=== PATIENT | female | born 1960 | race Hispanic/Latino ===

== ENCOUNTER 2018-01-21 08:05 | Day surgery (SDC) | payer OTHER ==
[~2018-01-21 08:05] MED LIST: CEFAZOLIN/SWI 2gm 2 GM/20 ML SYR IV SCH
[2018-01-21] MEDS ORDERED: Ringers Lactate 1,000 ML IV ONE (08:43)
[2018-01-21] MEDS ORDERED: BUPIVACA 0.25%/EPI 0.0005%/PF 30 ML VIAL ONE (09:39)
[2018-01-21] MEDS ORDERED: MIDAZOLAM HCL 2 MG/2 ML INJ ONE (10:13)
[2018-01-21] MEDS ORDERED: PROPOFOL 200 MG/20 ML VIAL IV ONE (10:13)
[2018-01-21] MEDS ORDERED: LIDOCAINE 1% MPF 5 ML VIAL ONE (10:14)
[2018-01-21] MEDS ORDERED: FENTANYL CITR 100 MCG/2 ML ONE (10:14)
--- NOTE | 2018-01-21 11:01 | P.OP ---
Respooler: jamarcus Preoperative diagnosis: RIGHT Axillary Lipoma Postoperative diagnosis: RIGHT Axillary Lipoma Primary procedure: Excision of RIGHT Axillary Lipoma Secondary procedure: Scar Revision Anesthesia: GETA + Local Estimated blood loss: <10cc Specimen: Lipoma, Skin, axillary tissue Findings: Significant scar tissue to RIGHT axilla Complications: None Transferred to: Recovery Room Condition: Good
[2018-01-21] MEDS ORDERED: KETOROLAC 30 MG/ML INJ ONE (11:06)
[2018-01-21] MEDS ORDERED: ONDANSETRON 4 MG/2 ML VIAL ONE (11:06)
[2018-01-21] MEDS ORDERED: CODEINE 30MG/APAP 300MG TAB ONE (12:15)
[2018-01-21] MEDS ORDERED: ACETAMINOPHEN 500 MG TAB PO ONE (12:20)
[2018-01-21] MEDS ORDERED: ACETAMINOPHEN 500 MG TAB ONE (12:35)
--- NOTE | 2018-01-22 01:54 | OP ---
Date of Procedure: 01/21/2018 Surgeon: Gregory Pyle MD, Preoperative Diagnosis: Right axillary lipoma. Postoperative Diagnosis: Right axillary lipoma. Procedure Performed: 1.Excision of right axillary lipoma. 2.Scar revision. Anesthesia: General endotracheal plus local with 0.25% Marcaine with epinephrine. Estimated Blood Loss: Less than 10 cc. Specimen: Lipoma, skin, and axillary tissue. Findings: Significant scar tissue at the right axilla causing wound contraction and a small lipomato us tissue to the right axilla, not extending to the axillary region more to the right chest wall than axilla. Complications: None. Disposition: Transferred to the recovery room in good condition. Procedure In Detail: After informed consent was obtained, the patient was brought to the operating r oom, prepped and draped in the usual sterile fashion. After adequate anesthesia was achieved, I anes thetized the previous surgical scar the patient had in the right axilla/chest wall region for approxi mately 7-8 cm. I then cut the ellipse of skin out over this overlying scar and dissected down using electrocautery. Using sharp dissection and electrocautery, I dissected down to create skin flaps and remove some lipomatous tissue in the right chest wall/axillary region which appeared to be enlarged consistent with a possible lipoma and sent this off for pathologic examination. I then undermined an d created skin flap circumferentially to revise the previous scar. After appropriately dissecting th e skin flaps, I achieved hemostasis with electrocautery circumferentially around. I removed some tis tyshawn from the scar area and sent it off for pathologic examination. This was at the border of the axi lla as well. After this was completed, I then cleansed the area once again with irrigation and achie seferino hemostasis with electrocautery. After this was completed, I reapproximated the deep tissues with 3-0 Vicryl in an interrupted fashion and closed the skin with a 4-0 Monocryl in running fashion. De rmabond placed over top. The patient tolerated the procedure well without evidence of complication, transferred to the PACU in good condition. All counts were correct at the end of the case. ANA/MATIAS Voice ID: [id number] Report ID: [id number]
== END 2018-01-21 12:57 | disposition home or self-care (01) ==
LOC: OR 08:05
PROVIDERS: ATTEND Surgery
PROC: 0HBBXZZ Excision of Right Upper Arm Skin, External Approach (ICD-10-PCS; 2018-01-21)
PROC: 0JBD0ZZ Excision of Right Upper Arm Subcutaneous Tissue and Fascia, Open Approach (ICD-10-PCS; principal; 2018-01-21 09:30)
DX: D17.20 Benign lipomatous neoplasm of skin and subcutaneous tissue of unspecified limb (principal); E78.00 Pure hypercholesterolemia, unspecified; I10 Essential (primary) hypertension; Z79.82 Long term (current) use of aspirin; Z91.040 Latex allergy status; Z80.41 Family history of malignant neoplasm of ovary; Z80.49 Family history of malignant neoplasm of other genital organs
CPT/HCPCS: 88302; 88304; 88305; J0690; J2250; J2405; J3010

== ENCOUNTER → 2018-03-15 | Day surgery (SDC) | payer OTHER ==
--- NOTE | 2018-03-15 10:52 | RAD REPORT ---
EXAM DESCRIPTION: Ultrasound-guided vacuum assisted right breast core biopsy CLINICAL HISTORY: Breast mass, enlarging intramammary lymph node. COMPARISON: Recent breast imaging studies. FINDINGS: Informed consent was obtained and time-out was performed. The patient's right breast was prepped and draped in the usual sterile fashion. 1% lidocaine was used for local anesthetic purposes. Utilizing aseptic technique and ultrasound guidance, vacuum assisted core biopsy device was used to o btain 2 core specimen through the mass of interest at approximately right breast 8-9 o'clock. A post biopsy clip was then placed. All collected material was sent for cytology. Patient tolerated procedure well. IMPRESSION: Successful ultrasound guided vacuum assisted right breast mass biopsy.
== END ==
LOC: DS 09:14
PROVIDERS: ATTEND Family Medicine
PROC: 0HBT3ZX Excision of Right Breast, Percutaneous Approach, Diagnostic (ICD-10-PCS; principal; 2018-03-15)
DX: N63.10 Unspecified lump in the right breast, unspecified quadrant (principal); N64.9 Disorder of breast, unspecified
CPT/HCPCS: 19083; 88305

== ENCOUNTER 2019-04-25 07:26 | Day surgery (SDC) | payer OTHER ==
[2019-04-25] MEDS ORDERED: BUPIVACA 0.5%/EPI 0.0005%/PF 10 ML VIAL ONE (08:10)
[2019-04-25] MEDS ORDERED: CEFAZOLIN/SWI 2gm 2 GM/20 ML SYR ONE (08:17)
[2019-04-25] MEDS ORDERED: Ringers Lactate 1,000 ML IV ONE (08:17)
[2019-04-25] MEDS ORDERED: MIDAZOLAM HCL 2 MG/2 ML INJ ONE (08:21)
[2019-04-25] MEDS ORDERED: BUPIVACA 0.25%/EPI 0.0005% MDV 50 ML VIAL ONE (08:21)
[2019-04-25] MEDS ORDERED: PROPOFOL 200 MG/20 ML VIAL IV ONE ×2 (08:21→09:51)
[2019-04-25] MEDS ORDERED: FENTANYL CITR 100 MCG/2 ML ONE ×2 (08:21→10:01)
[2019-04-25] MEDS ORDERED: LIDOCAINE 1% MPF 5 ML VIAL ONE (08:21)
[2019-04-25] MEDS ORDERED: KETOROLAC 30 MG/ML INJ ONE (09:21)
[2019-04-25] MEDS ORDERED: ONDANSETRON 4 MG/2 ML VIAL ONE (09:21)
--- NOTE | 2019-04-25 10:06 | P.OP ---
Preoperative diagnosis: Recurrent RIGHT Chest Wall Mass Postoperative diagnosis: Recurrent RIGHT Chest Wall Mass Primary procedure: Wide local excision of Recurrent RIGHT Chest Wall Mass Anesthesia: GETA + Local Estimated blood loss: <5cc Specimen: Frozen Section + Permanent chest wall mass with surrounding tissue Findings: Firm Fixed mass to chest wall, adherant to chest wall Complications: None Drain(s): IMANI drain Transferred to: Recovery Room Condition: Good
[2019-04-25] MEDS ORDERED: HYDROCODONE/APAP 7.5/325 MG TAB ONE (11:28)
[2019-04-25] MEDS ORDERED: ACETAMINOPHEN 325 MG TABLET ONE (11:46)
[2019-04-25] MEDS ORDERED: ACETAMINOPHEN 325 MG TABLET PO ONE (11:50)
--- NOTE | 2019-04-25 14:49 | OP ---
Date of Procedure: 04/25/2019 Surgeon: Gregory Pyle MD, Preoperative Diagnosis: Recurrent right chest wall mass. Postoperative Diagnosis: Recurrent right chest wall mass. Procedure Performed: Wide local excision of recurrent chest wall mass. Anesthesia: General endotracheal plus local 0.5% Marcaine with epinephrine. Estimated Blood Loss: Less than 5 cc. Specimen: Right chest wall mass 7 cm x 4 cm approximately sent for frozen section. I then took matthew tional deep margins and surrounding tissue which appeared to be soft, fibrofatty tissue. Frozen sect ion performed which I personally examined as well appeared to be consistent with simple fibrosis, alt christ we will find out on permanent section as this is going to be sent for additional studies by Barbara levy. I returned to the operating room after the frozen section to complete the case. Complications: None. Drains: A IMANI drain which is a 10-Turkish round IMANI drain. The patient transferred to recovery room in good condition. Procedure In Detail: After informed consent was obtained, the patient was brought to the operating r oom, prepped and draped in the usual sterile fashion. After adequate anesthesia achieved, I incised through previous incision on the right chest wall down to subcutaneous tissues medially, encounter wa s firm fibrous tissue just adjacent to the dermis. I dissected circumferentially around, creating th in flaps as this tissue was quite firm and adherent. I dissected down to the chest wall and took a s egment of the firm fibrous tissue and sent that off for frozen section. I then personally reviewed t he frozen section and visualize the tissue with Dr. Sprague. We found that there was no evidence for malignancy, although the tissue was firm and rock hard during the surgery. I then returned to the op erating room. I took an additional deep margin and surrounding fibrofatty tissue until it relatively cleared however it appeared to extend into the chest wall and as such I discontinued this as I did n ot want to enter the pleural space. At this point, I then irrigated the area, achieved hemostasis ea sily with electrocautery, placed a 10 round drain through a superior incision and irrigated the area once again, dried it completely and reapproximated the dermal plane with 3-0 Vicryl interrupted sutur es and closed the skin with a 4-0 Monocryl in a running fashion and Dermabond placed over top. The p atient tolerated the procedure well without evidence of complication and transferred to PACU in good condition. All counts were correct at the end of the case. ANA/MATIAS Voice ID: [id number] Report ID: [id number]
== END 2019-04-25 12:55 | disposition home or self-care (01) ==
LOC: OR 07:26
PROVIDERS: ATTEND Surgery
PROC: 0JB60ZZ Excision of Chest Subcutaneous Tissue and Fascia, Open Approach (ICD-10-PCS; principal; 2019-04-25 08:30)
DX: R22.2 Localized swelling, mass and lump, trunk (principal); I10 Essential (primary) hypertension; E78.00 Pure hypercholesterolemia, unspecified; K21.9 Gastro-esophageal reflux disease without esophagitis; E07.9 Disorder of thyroid, unspecified; Z79.82 Long term (current) use of aspirin; Z91.040 Latex allergy status; Z80.49 Family history of malignant neoplasm of other genital organs
CPT/HCPCS: 88305; 88307; 88331; J0690; J2250; J2405; J2704; J3010